=== PATIENT | female | born 1990 | race Two or more races ===

== ENCOUNTER 2018-09-25 17:49 | Inpatient (IN) | payer OTHER ==
[~2018-09-25] VITALS: Ht 167.6 cm; Wt 107.0 kg
[~2018-09-25 17:49] MED LIST: PEPCID40 MG PO; ZOFRAN8 MG PO
== END 2018-09-27 14:28 | disposition home or self-care (01) | DRG 806 ==
LOC: OB/GYN 17:49 → LDR 17:49 → OB/GYN 21:10
PROVIDERS: ADMIT Specialist
PROC: 10E0XZZ Delivery of Products of Conception, External Approach (ICD-10-PCS; principal; 2018-09-25)
PROC: 0UQGXZZ Repair Vagina, External Approach (ICD-10-PCS; 2018-09-25)
PROC: 4A1HXCZ Monitoring of Products of Conception, Cardiac Rate, External Approach (ICD-10-PCS; 2018-09-25)
DX: O60.14X0 Preterm labor third trimester with preterm delivery third trimester, not applicable or unspecified (principal); O71.4 Obstetric high vaginal laceration alone; Z37.0 Single live birth; Z3A.36 36 weeks gestation of pregnancy; Z22.330 Carrier of Group B streptococcus

== ENCOUNTER → 2018-11-23 | Emergency (ER) | payer OTHER ==
[~2018-11-23] VITALS: Ht 170.2 cm; Wt 97.1 kg
== END | disposition left against medical advice (07) ==
LOC: ER 22:00
DX: Z53.20 Procedure and treatment not carried out because of patient's decision for unspecified reasons (principal)